=== PATIENT | male | born 1960 | race African-American/Black ===

== ENCOUNTER 2022-10-23 04:06 | Day surgery (SDC) | payer BC ==
[2022-10-17 12:37] VITALS: BMI 31.2
[2022-10-23 06:57] VITALS: RESP 20
[2022-10-23] MEDS ORDERED: MIDAZOLAM HCL 2 MG/2 ML SINGLE DOSE VIAL ONE (08:33)
[2022-10-23 11:08] VITALS: BP 148/79; PULSE 80; TEMP 97.5
== END 2022-10-23 10:45 | disposition home or self-care (01) ==
LOC: JASU-SURG 04:06
PROVIDERS: ATTEND Urology
PROC: 0TF3XZZ Fragmentation in Right Kidney Pelvis, External Approach (ICD-10-PCS; principal; 2022-10-23 09:00)
DX: N20.0 Calculus of kidney (principal)
CPT/HCPCS: 82962

== ENCOUNTER 2024-04-07 05:15 | Day surgery (SDC) | payer BC ==
[2024-04-07] MEDS ORDERED: MIDAZOLAM HCL 2 MG/2 ML SINGLE DOSE VIAL ONE (11:33)
[2024-04-07 12:21] VITALS: TEMP 97.7
[2024-04-07 12:59] VITALS: BP 139/67; PULSE 72; RESP 18
== END 2024-04-07 13:21 | disposition home or self-care (01) ==
LOC: JASU-SURG 05:15
PROVIDERS: ATTEND Urology
PROC: 0TF3XZZ Fragmentation in Right Kidney Pelvis, External Approach (ICD-10-PCS; principal; 2024-04-07 11:45)
DX: N20.0 Calculus of kidney (principal)
CPT/HCPCS: 82962